=== PATIENT | male | born 1965 | race Caucasian/White ===

== ENCOUNTER 2016-11-05 08:46 | Emergency (ER) | payer SELFPAY ==
[~2016-11-05] VITALS: Ht 185.4 cm; Wt 95.5 kg
[~2016-11-05 08:46] MED LIST: GABA300C3 PO; METF500 PO
[2016-11-05 08:48] VITALS: BP 183/98; PULSE 110; RESP 18; TEMP 97.8; O2SAT 100
[2016-11-05] MEDS ORDERED: METF500T PO (08:59)
[2016-11-05] MEDS ORDERED: SODIUM CHLOR 0.9% 1000 ML INJ 1,000 ML IV SCH (10:02)
--- NOTE | 2016-11-05 10:10 | PD ---
HPI Chief Complaint: GI Complaint Time Seen by Provider: 09:58 Travel History International Travel<30 days: No Contact w/Intl Traveler<30days: No Traveled to known affect area: No History of Present Illness HPI 51-year-old male complains of abdominal pain with nausea vomiting diarrhea. Patient states that the symptoms started 2 days ago. Patient has history of alcohol abuse. Last drink was yesterday. Patient states that he started having swelling of the throat and unable to keep anything down since last night. Patient also has history diabetes. Patient states that his blood sugar has been running around 1 40-160 at home. Patient denies any dysuria or frequency. Patient denies any blood per vomitus or stool. Patient denies any fever chills. On a scale of 1-10 the pain is a 10. Patient has history of pancreatitis in the past. PFSH Past Medical History Arthritis: No Asthma: No Autoimmune Disease: No Anxiety: No Depression: No Heart Rhythm Problems: No Cancer: No Cardiovascular Problems: No High Cholesterol: No Chemotherapy: No Chest Pain: No Congestive Heart Failure: No COPD: No Cerebrovascular Accident: No Diabetes: Yes Patient Takes Glucophage: Yes Diminished Hearing: No Diverticulitis: Yes Endocrine: Yes Gastrointestinal Disorders: Yes (DIVERTICULITIS,PANCREATITIS) GERD: No Genitourinary: No Hiatal Hernia: No Immune Disorder: No Kidney Stones: No Musculoskeletal: Yes (LEFT FOOT BONE INFECTION) Neurologic: No Psychiatric: No Reproductive: No Respiratory: No Integumentary: Yes (NON HEALING ULCERS VENTRAL SURFACE LEFT FOOT 2 CM FOREFOOT , 3 CM HEEL ) Migraines: No Pancreatitis: Yes Radiation Therapy: No Renal Failure: No Seizures: No Sickle Cell Disease: No Sleep Apnea: No Thyroid Disease: No Ulcer: No PNEUMOCCOCAL Vaccine (Year): 2 Past Surgical History Abdominal Surgery: No AICD: No Arteriovenous Shunt: No Cardiac Surgery: No Ear Surgery: No Endocrine Surgery: No Eye Surgery: No Genitourinary Surgery: No Gynecologic Surgery: No Insulin Pump: No Joint Replacement: No Oral Surgery: No Pacemaker: No Thoracic Surgery: No Other Surgery: Yes (BONE REMOVED FROM LEFT LITTLE TOE AFTER INFECTION) Social History Alcohol Use: Yes (couple beers a day) Tobacco Use: No Substance Use: No Allergies-Medications (Allergen,Severity, Reaction): Coded Allergies: Morphine (Verified Allergy, Severe, Hives, 11/05/16) Reported Meds & Prescriptions Reported Meds & Active Scripts Active Reported Metformin (Metformin HCl) 500 Mg Tab 500 Mg PO BIDPC With meals Review of Systems General / Constitutional: No: Fever Eyes: No: Visual changes HENT: No: Headaches Cardiovascular: No: Chest Pain or Discomfort Respiratory: No: Shortness of Breath Gastrointestinal: Positive: Nausea, Vomiting, Diarrhea, Abdominal Pain Genitourinary: No: Dysuria Musculoskeletal: No: Pain Skin: No Rash Neurologic: No: Weakness Psychiatric: No: Depression Endocrine: No: Polydipsia Hematologic/Lymphatic: No: Easy Bruising Physical Exam Narrative GENERAL: Well-nourished, well-developed patient. SKIN: Focused skin assessment warm/dry. HEAD: Normocephalic. EYES: No scleral icterus. No injection or drainage. NECK: Supple, trachea midline. No JVD or lymphadenopathy. CARDIOVASCULAR: Regular rate and rhythm without murmurs, gallops, or rubs. RESPIRATORY: Breath sounds equal bilaterally. No accessory muscle use. GASTROINTESTINAL: Abdomen soft, nondistended. Patient has moderate tenderness on palpation epigastric area. No rebound tenderness area no mass. MUSCULOSKELETAL: No cyanosis, or edema. BACK: Nontender without obvious deformity. No CVA tenderness. Neurologic exam normal. Data Data Last Documented VS Vital Signs Date Time Temp Pulse Resp B/P Pulse Ox O2 Delivery O2 Flow Rate FiO2 11/05/16 10:49 18 11/05/16 10:21 100 Room Air 11/05/16 10:20 112 157/83 11/05/16 08:48 97.8 Orders Complete Blood Count With Diff (11/05/16 10:02) Comprehensive Metabolic Panel (11/05/16 10:02) Lipase (11/05/16 10:02) Prothrombin Time / Inr (Pt) (11/05/16 10:02) Act Partial Throm Time (Ptt) (11/05/16 10:02) Urinalysis - C+S If Indicated (11/05/16 10:02) Iv Access Insert/Monitor (11/05/16 10:02) Ecg Monitoring (11/05/16 10:02) Oximetry (11/05/16 10:02) Ondansetron Inj (Zofran Inj) (11/05/16 10:15) Pantoprazole Inj (Protonix Inj) (11/05/16 10:15) Sodium Chlor 0.9% 1000 Ml Inj (Ns 1000 M (11/05/16 10:02) Hydromorphone Pf Inj (Dilaudid Pf Inj) (11/05/16 10:15) Ct Abd/Pel W Iv Contrast(Rout) (11/05/16 10:02) Lorazepam Inj (Ativan Inj) (11/05/16 11:00) Urine Culture (11/05/16 12:00) Iohexol 350 Inj (Omnipaque 350 Inj) (11/05/16 12:30) Labs Laboratory Tests Test 11/05/16 11/05/16 10:15 12:00 White Blood Count 14.8 TH/MM3 Red Blood Count 4.77 MIL/MM3 Hemoglobin 16.1 GM/DL Hematocrit 46.1 % Mean Corpuscular Volume 96.7 FL Mean Corpuscular Hemoglobin 33.7 PG Mean Corpuscular Hemoglobin 34.8 % Concent Red Cell Distribution Width 13.0 % Platelet Count 196 TH/MM3 Mean Platelet Volume 9.3 FL Neutrophils (%) (Auto) 83.6 % Lymphocytes (%) (Auto) 11.8 % Monocytes (%) (Auto) 4.5 % Eosinophils (%) (Auto) 0.0 % Basophils (%) (Auto) 0.1 % Neutrophils # (Auto) 12.4 TH/MM3 Lymphocytes # (Auto) 1.7 TH/MM3 Monocytes # (Auto) 0.7 TH/MM3 Eosinophils # (Auto) 0.0 TH/MM3 Basophils # (Auto) 0.0 TH/MM3 CBC Comment DIFF FINAL Differential Comment Prothrombin Time 10.7 SEC Prothromb Time International 1.0 RATIO Ratio Activated Partial 27.5 SEC Thromboplast Time Sodium Level 134 MEQ/L Potassium Level 3.5 MEQ/L Chloride Level 94 MEQ/L Carbon Dioxide Level 22.6 MEQ/L Anion Gap 17 MEQ/L Blood Urea Nitrogen 13 MG/DL Creatinine 1.10 MG/DL Estimat Glomerular Filtration 70 ML/MIN Rate Random Glucose 182 MG/DL Calcium Level 10.4 MG/DL Total Bilirubin 1.0 MG/DL Aspartate Amino Transf 25 U/L (AST/SGOT) Alanine Aminotransferase 26 U/L (ALT/SGPT) Alkaline Phosphatase 71 U/L Total Protein 9.1 GM/DL Albumin 4.4 GM/DL Lipase 218 U/L Urine Color YELLOW Urine Turbidity CLEAR Urine pH 6.0 Urine Specific [place] 1.022 Urine Protein 100 mg/dL Urine Glucose (UA) NEG mg/dL Urine Ketones 150 mg/dL Urine Occult Blood SMALL Urine Nitrite NEG Urine Bilirubin NEG Urine Urobilinogen LESS THAN 2.0 MG/DL Urine Leukocyte Esterase MOD Urine RBC 1 /hpf Urine WBC 23 /hpf Urine Bacteria RARE /hpf Urine Mucus FEW /lpf Microscopic Urinalysis Comment CULTURE INDICATED MDM Medical Decision Making Medical Screen Exam Complete: Yes Emergency Medical Condition: Yes Interpretation(s) Last Impressions Abdomen/Pelvis CT 11/05/16 1002 Signed Impressions: Service Date/Time: Thursday, November 05, 2016 12:20 - CONCLUSION: 1. No CT findings to explain patient's abdominal pain. 2. Mild scattered descending colonic diverticulosis without evidence for significant diverticulitis. 3. Normal appendix. 4. Redemonstration of diffusely decreased hepatic density consistent with hepatosteatosis. Jorge Park MD 1402 p.m. CBC WBC 14.8. 83 neutrophil. Sodium 134. GFR 70. Random glucose 182. Calcium 10.4. UA positive with WBC and bacteria. Differential Diagnosis Differential diagnosis including gastritis, PUD, pancreatitis, cholecystitis, colitis, UTI, pyelonephritis, nephrolithiasis. Narrative Course 51-year-old male abdominal pain, nausea vomiting diarrhea. History of EtOH abuse. History of pancreatitis. Normal saline solution 1 L IV bolus. Dilaudid 1 mg IV. Zofran 4 mg IV. Protonix 40 mg IV. Thiamine 100 mg IV. Bactrim DS one tablet by mouth given. Diagnosis Primary Impression: Gastroenteritis Additional Impression: UTI (urinary tract infection) Qualified Code: N30.00 - Acute cystitis without hematuria Patient Instructions: General Instructions Additional Instructions: Take medications as directed. Follow-up with personal physician. Return if persistent problem or worse. Advised [facility] for alcohol problem. Med/Other Pt SpecificInfo: Prescription(s) given Scripts Dicyclomine (Bentyl)10 Mg Cap10 Mg PO TID PRN (PAIN SCALE 1 TO 10) #15 CAP Ref 0 Prov:Jose Tabor MD 11/05/16 Ondansetron Odt (Zofran Odt)4 Mg Tab4 Mg SL Q6HR PRN (Nausea/Vomiting) #10 TAB Prov:Jose Tabor MD 11/05/16 Sulfamethoxazole-Trimethoprim (Bactrim DS)800-160 Mg Tab1 Tab PO BID #14 TAB Prov:Jose Tabor MD 11/05/16 Disposition: 01 DISCHARGE HOME Condition: Stable Jose Tabor MD Nov 05, 2016 10:10
[2016-11-05] MEDS ORDERED: HYDROmorphone HCL PF 1 MG/ML VIAL IVS ONE (10:15)
[2016-11-05] MEDS ORDERED: PANTOPRAZOLE SODIUM 40 MG VIAL IVP ONE (10:15)
[2016-11-05] MEDS ORDERED: ONDANSETRON HCL 4 MG/2 ML VIAL IVP ONE (10:15)
[2016-11-05 10:20] VITALS: BP 157/83; PULSE 112; RESP 18; O2SAT 100
[2016-11-05 10:21] VITALS: O2SAT 100
[2016-11-05 10:40] LABS: AUTOMATED NEUTROPHIL # 12.4 TH/MM3 (1.8-7.7); BASOPHIL % 0.1 % (0.0-2.0); HEMATOCRIT 46.1 % (39.0-51.0); HEMO FLAGS DIFF FINAL; LYMPH % 11.8 % (9.0-44.0); LYMPHOCYTE # 1.7 TH/MM3 (1.0-4.8); MEAN CELL VOLUME 96.7 FL (80.0-100.0); MEAN CORPUSCULAR HEMOGLOBIN 33.7 PG (27.0-34.0); MEAN CORPUSCULAR HGB CONC 34.8 % (32.0-36.0); MONO % 4.5 % (0.0-8.0); NEUT % 83.6 % (16.0-70.0); PLATELET COUNT 196 TH/MM3 (150-450); RED BLOOD COUNT 4.77 MIL/MM3 (4.50-5.90); WHITE BLOOD COUNT 14.8 TH/MM3 (4.0-11.0)
[2016-11-05 10:49] VITALS: RESP 18
[2016-11-05 10:49] LABS: APTT (PATIENT) 27.5 SEC (24.3-30.1); PROTHROMBIN TIME - PATIENT 10.7 SEC (9.8-11.6)
[2016-11-05] MEDS ORDERED: LORazepam 2 MG/ML VIAL IV PUSH ONE (11:00)
[2016-11-05 11:01] LABS: ALT (GPT) 26 U/L (12-78); ANION GAP 17 MEQ/L (5-15); AST (GOT) 25 U/L (15-37); BICARBONATE 22.6 MEQ/L (21.0-32.0); BLOOD UREA NITROGEN 13 MG/DL (7-18); CHLORIDE 94 MEQ/L (98-107); GLOMERULAR FILTRATION RATE 70 ML/MIN (>89); POTASSIUM 3.5 MEQ/L (3.5-5.1); SODIUM (NA) 134 MEQ/L (136-145)
[2016-11-05 11:04] LABS: ALKALINE PHOSPHATASE 71 U/L (45-117)
[2016-11-05 12:28] LABS: BACTERIA, URINE RARE /hpf; BLOOD, URINE SMALL (NEG); COMMENT (UR) CULTURE INDICATED; CULTURE IF INDICATED CULTURE INDICATED; GLUCOSE,URINE NEG (NEG); KETONE, URINE 150 mg/dL (NEG); MUCUS URINE FEW /lpf (OCC); NITRITE,URINE NEG (NEG); URINE COLOR YELLOW (YELLW/STRAW)
[2016-11-05] MEDS ORDERED: IOHEXOL 350 MG/ML 10 ML VIAL (for RAD DIAG) IV ONE (12:30)
--- NOTE | 2016-11-05 12:55 | RADRPT ---
EXAM DATE/TIME: 11/05/2016 12:20 [place] COMPARISON: CT ABDOMEN & PELVIS W CONTRAST, September 30, 2014, 9:15. INDICATIONS : Nausea, vomiting, diarrhea and left sided abdominal pain since Thursday. IV CONTRAST: 96 cc Omnipaque 350 (iohexol) IV ORAL CONTRAST: No oral contrast ingested. RADIATION DOSE: 9.90 CTDIvol (mGy) MEDICAL HISTORY : Pancreatitis. Diverticulitis. Colitis SURGICAL HISTORY : None. ENCOUNTER: Initial ACUITY: 3 days PAIN SCALE: 10/10 LOCATION: Left lower quadrant TECHNIQUE: Volumetric scanning of the abdomen and pelvis was performed. Using automated exposure control and ad justment of the mA and/or kV according to patient size, radiation dose was kept as low as reasonably achievable to obtain optimal diagnostic quality images. FINDINGS: LOWER LUNGS: The visualized lower lungs are clear. LIVER: Diffuse decreased hepatic attenuation without evidence for volume loss or focal mass. No significant intrahepatic ductal dilatation. Gallbladder appears unremarkable. SPLEEN: Normal size without lesion. PANCREAS: Within normal limits. KIDNEYS: Normal in size and shape. There is no mass, stone or hydronephrosis. ADRENAL GLANDS: Within normal limits. VASCULAR: There is no aortic aneurysm. BOWEL/MESENTERY: Evaluation of portions of the bowel are limited due to motion artifact. Scattered mild colonic divert icula in the descending colon. No significant inflammatory change to suggest diverticulitis. Appendix is visualized and normal. No significant bowel wall thickening or obstruction. ABDOMINAL WALL: Within normal limits. RETROPERITONEUM: Subcentimeter nodes do not be CT size criteria. BLADDER: Decompressed which accentuates the bladder wall. REPRODUCTIVE: Nonspecific enlargement of the prostate gland which contains calcifications. INGUINAL: There is no lymphadenopathy or hernia. MUSCULOSKELETAL: Within normal limits for patient age. CONCLUSION: 1. No CT findings to explain patient's abdominal pain. 2. Mild scattered descending colonic diverticulosis without evidence for significant diverticulitis. 3. Normal appendix. 4. Redemonstration of diffusely decreased hepatic density consistent with hepatosteatosis. Jorge Park MD on November 05, 2016 at 12:45 Board Certified Radiologist. This report was verified electronically.
[2016-11-05] MEDS ORDERED: ZOFR4TAB3 SL (14:09)
[2016-11-05] MEDS ORDERED: DICY10 PO (14:09)
[2016-11-05] MEDS ORDERED: BACT800T5 PO (14:09)
[2016-11-05] MEDS ORDERED: SULFAMETHOXAZOLE-TRIMETHOPRIM DS 800-160 MG TAB PO ONE (14:15)
[2016-11-05 14:38] VITALS: BP 162/78
== END 2016-11-05 14:39 | disposition home or self-care (01) ==
LOC: NEPD 08:46
DX: K52.9 Noninfective gastroenteritis and colitis, unspecified (principal); N39.0 Urinary tract infection, site not specified; K85.90 Acute pancreatitis without necrosis or infection, unspecified; K57.30 Diverticulosis of large intestine without perforation or abscess without bleeding; K76.0 Fatty (change of) liver, not elsewhere classified; E11.9 Type 2 diabetes mellitus without complications; Z79.899 Other long term (current) drug therapy
CPT/HCPCS: 74177; 80053; 81001; 83690; 85025; 85610; 85730; 86403; 87086; 87186; 96361; 96374; 96375; 99285; C9113; J1170; J2060; J2405; J7030; Q9967